=== PATIENT | female | born 1985 | race Asian ===

== ENCOUNTER 2017-05-18 13:23 | Emergency (ER) | payer BC ==
--- NOTE | 2017-05-18 14:40 | EDPHY ---
H & P Time Seen by Provider: 05/18/17 14:03 HPI/ROS: Chief complaint. Abdominal pain HPI. 31-year-old female with early . Her last menstrual. Was April 12. She has had 2 positive home test. She has had 2 day history of low crampy abdominal pain and some vaginal spotting. Some nausea and vomiting but no diarrhea. No urinary symptoms. She is 1 para 0. No chest discomfort or trouble breathing. No fever. ROS Constitutional. no fever/chills, no weakness Eyes. no problems with vision ENT. no sore throat, no nasal drainage Cardiovascular. no chest pain Respiratory. no shortness of breath, no cough Abdominal. Low abdominal cramping with some nausea vomiting; vaginal spotting . no problems urinating MS. no calf pain/swelling, no neck/back pain, no joint pain Skin. no rash Lymph. no swollen glands Neuro. no headache, no dizziness, no difficulty walking or with speech Past Medical/Surgical History: Healthy Social History: , nonsmoker, no alcohol Smoking Status: Never smoked Physical Exam: General Appearance: Alert pleasant well-developed female mild distress vital signs are stable Eyes: Pupils equal and round no pallor or injection. ENT, Mouth: Mucous membranes are moist. Respiratory: There are no retractions, lungs are clear to auscultation. Cardiovascular: Regular rate and rhythm. Gastrointestinal: Abdomen is soft with mild tenderness in the suprapubic and adnexal areas. No masses. No organomegaly; normal bowel sounds Neurological: Awake and alert, sensory and motor exams grossly normal. Skin: Warm and dry, no rashes. Musculoskeletal: Neck is supple nontender. Extremities symmetrical, full range of motion. Psychiatric: Patient is oriented X 3, there is no agitation. Constitutional: Initial Vital Signs Temperature (C) 37.0 C 05/18/17 13:26 Heart Rate 88 05/18/17 13:26 Respiratory Rate 16 05/18/17 13:26 Blood Pressure 116/81 H 05/18/17 13:26 O2 Sat (%) 97 05/18/17 13:26 O2 Delivery Mode Room Air Medical Decision Making - Diagnostics Imaging Results: Imaging Impressions Obstetrics Ultrasound 05/18/17 14:56 Impression: of unknown location. Thickened decidua in the endometrial cavity without intrauterine gestational sac. Small volume of complex fluid, potentially hemoperitoneum, adjacent to the left ovary and fallopian tube. Recommend follow up. Findings discussed with Emergency Department physician, Dr. Ellis Dumont on May 18, 2017 at 1644 hours. Ultrasound reviewed by me and discussed Dr. Parikh shows the thickened decidual lining of the uterus measuring 1.8 cm. An IUP is not seen. There however is no findings of an obvious extra uterine either. The ovaries appear normal. There is some free fluid in the left adnexa and along the contour of the left fallopian tube. Procedures: IV normal saline ED Course/Re-evaluation: Re-evaluation 5:00 p.m.. Patient is stable. Patient and I discussed imaging study results, treatment plan including importance of follow-up and further evaluation as well as criteria for return. They expressed understanding and agreement I consulted and discussed the case with who agrees with current management. She will see the patient in the office in 48 hr for repeat quantitative HCG and ultrasound. Patient's blood type is O-positive Differential Diagnosis: Threatened miscarriage versus early and not seen the intrauterine verses ectopic - Data Points Laboratory Results: Laboratory Results 05/18/17 14:14 05/18/17 14:14 05/18/17 05/18/17 05/18/17 15:15 14:50 14:14 WBC RBC Hgb Hct MCV MCH MCHC RDW Plt Count MPV Neut % (Auto) Lymph % (Auto) [place] % (Auto) Eos % (Auto) Baso % (Auto) Nucleat RBC Rel Count Absolute Neuts (auto) Absolute Lymphs (auto) Absolute Monos (auto) Absolute Eos (auto) Absolute Basos (auto) Absolute Nucleated RBC Immature Gran % Immature Gran # Sodium 141 mEq/L mEq/L (135-145) Potassium 4.0 mEq/L mEq/L (3.5-5.2) Chloride 106 mEq/L mEq/L (97-110) Carbon Dioxide 21 mEq/l L mEq/l (22-31) Anion Gap 14 mEq/L mEq/L (8-16) BUN 11 mg/dL mg/dL (7-23) Creatinine 0.6 mg/dL mg/dL (0.6-1.0) Estimated GFR > 60 Glucose 97 mg/dL mg/dL (70-100) Calcium 9.3 mg/dL mg/dL (8.5-10.4) Beta HCG, Quant 493.37 mIU/mL H mIU/mL (0.00-4.83) Urine Color YELLOW Urine Appearance HAZY Urine pH 6.0 (5.0-7.5) Ur Specific [place] 1.019 (1.002-1.030) Urine Protein NEGATIVE (NEGATIVE) Urine Ketones NEGATIVE (NEGATIVE) Urine Blood 3+ H (NEGATIVE) Urine Nitrate NEGATIVE (NEGATIVE) Urine Bilirubin NEGATIVE (NEGATIVE) Urine Urobilinogen NEGATIVE EU EU (0.2-1.0) Ur Leukocyte Esterase NEGATIVE (NEGATIVE) Urine RBC 15-25 /hpf H /hpf (0-3) Urine WBC 3-5 /hpf H /hpf (0-3) Ur Epithelial Cells 1+ /lpf /lpf (NONE-1+) Urine Bacteria 2+ /hpf H /hpf (NONE SEEN) Urine Mucus TRACE /lpf /lpf (NONE-1+) Urine Glucose NEGATIVE (NEGATIVE) Patient ABO/Rh O POSITIVE 05/18/17 14:14 WBC 7.74 10^3/uL 10^3/uL (3.80-9.50) RBC 4.34 10^6/uL 10^6/uL (4.18-5.33) Hgb 13.6 g/dL g/dL (12.6-16.3) Hct 41.0 % % (38.0-47.0) MCV 94.5 fL fL (81.5-99.8) MCH 31.3 pg pg (27.9-34.1) MCHC 33.2 g/dL g/dL (32.4-36.7) RDW 13.3 % % (11.5-15.2) Plt Count 293 10^3/uL 10^3/uL (150-400) MPV 9.3 fL fL (8.7-11.7) Neut % (Auto) 71.6 % % (39.3-74.2) Lymph % (Auto) 19.5 % % (15.0-45.0) [place] % (Auto) 5.0 % % (4.5-13.0) Eos % (Auto) 2.8 % % (0.6-7.6) Baso % (Auto) 0.8 % % (0.3-1.7) Nucleat RBC Rel Count 0.0 % % (0.0-0.2) Absolute Neuts (auto) 5.54 10^3/uL 10^3/uL (1.70-6.50) Absolute Lymphs (auto) 1.51 10^3/uL 10^3/uL (1.00-3.00) Absolute Monos (auto) 0.39 10^3/uL 10^3/uL (0.30-0.80) Absolute Eos (auto) 0.22 10^3/uL 10^3/uL (0.03-0.40) Absolute Basos (auto) 0.06 10^3/uL 10^3/uL (0.02-0.10) Absolute Nucleated RBC 0.00 10^3/uL 10^3/uL (0-0.01) Immature Gran % 0.3 % % (0.0-1.1) Immature Gran # 0.02 10^3/uL 10^3/uL (0.00-0.10) Sodium Potassium Chloride Carbon Dioxide Anion Gap BUN Creatinine Estimated GFR Glucose Calcium Beta HCG, Quant Urine Color Urine Appearance Urine pH Ur Specific [place] Urine Protein Urine Ketones Urine Blood Urine Nitrate Urine Bilirubin Urine Urobilinogen Ur Leukocyte Esterase Urine RBC Urine WBC Ur Epithelial Cells Urine Bacteria Urine Mucus Urine Glucose Patient ABO/Rh Medications Given: Discontinued Medications Sodium Chloride (Ns) 1,000 mls @ 0 mls/hr IV EDNOW ONE; Wide Open PRN Reason: Protocol Stop: 05/18/17 14:57 Last Admin: 05/18/17 14:59 Dose: 1,000 mls Departure - Departure Disposition: Home, Routine, Self-Care Clinical Impression: Threatened miscarriage Condition: Good Instructions: Threatened Miscarriage (ED) Additional Instructions: Tylenol is okay for pain. Easy activity. Return for worsening pain or bleeding. Call tomorrow to arrange follow-up appointment in the next 48 hr. Referrals: NONE *PRIMARY CARE P,. [Primary Care Provider] - As per Instructions Gina Aviles DO [Doctor of Osteopathy] - 2-3 days, call for appt.
[2017-05-18] MEDS ORDERED: NS 1,000 ML IV ONE (14:56)
[2017-05-18 15:12] LABS: PLATELET COUNT 293 10^3/uL (150-400)
[2017-05-18 17:25] VITALS: BP 109/79; PULSE 68; RESP 18; TEMP 98.2; O2SAT 99
== END 2017-05-18 17:30 | disposition home or self-care (01) ==
DX: O20.0 Threatened abortion (principal); E86.9 Volume depletion, unspecified; Z3A.00 Weeks of gestation of pregnancy not specified

== ENCOUNTER → 2017-06-02 | Outpatient (CLI) | payer OTHER | LOC: FIMAGING 08:53 | PROVIDERS: ATTEND Obstetrics & Gynecology | DX: O36.80X0 Pregnancy with inconclusive fetal viability, not applicable or unspecified (principal) ==

== ENCOUNTER 2018-01-24 19:25 | Observation (INO) | payer OTHER ==
--- NOTE | 2018-01-24 21:55 | OBPROG ---
Labor Progress Note Assessment/Plan: Assessment: 32 up at 30 wks DANNY presents with upper abdominal pain, for rule-out PTL. Discussed with them that negative FFN and CL 4cm very reassuring w regard to PTL. I think likely mom is working on some kind of viral illness and having irregular ctx's/irritabilty related to that. Rec'd PO hydration, electrolytes, fu in clinic if no improving. Dc'd home - appt with me in office on Thursday. EM Subjective/Intrapartum Course: I was on the phone with Kendall and Vern a couple times today. She reports that over the past 24 hours she's developed malaise, lack of appetite, and increasingly uncomfortable upper abdominal pain that comes and goes with some regularity. No bleeding, not sensing actual contractions/tightening, baby is moving well. Denies fever, no nausea/vomiting, no diarrhea. Objective: FFN - Neg CLUS - 4.1cm closed UA - Neg Laboratory Tests 01/24/18 20:40 Urine Color YELLOW Urine Appearance HAZY Urine pH 5.0 Ur Specific [place] 1.023 Urine Protein NEGATIVE Urine Ketones 2+ H Urine Blood NEGATIVE Urine Nitrate NEGATIVE Urine Bilirubin NEGATIVE Urine Urobilinogen NEGATIVE Ur Leukocyte Esterase NEGATIVE Urine Glucose NEGATIVE - SVE Dilation (cm): 0 Effacement (%): 0 Station: -3 Membranes: Intact - Contraction Pattern Assessment Current Contraction Pattern: Other (Specify) (None) - FHR Assessment Taylor FHR (bpm): 155 FHR Pattern Variability: Moderate FHR Category: 1 Oxytocin Orders Assessment - Pre-Induction/Augmentation Assessment Gestational Age: 30 week(s) and 2 day(s) ICD10 Worksheet Patient Problems: Problems Problem Status Onset contractions Acute - ICD10 Problem Qualifiers (1) contractions
== END 2018-01-24 21:50 | disposition home or self-care (01) ==
LOC: FLD 19:25
PROVIDERS: ADMIT Obstetrics & Gynecology; ATTEND Obstetrics & Gynecology
DX: O99.89 Other specified diseases and conditions complicating pregnancy, childbirth and the puerperium (principal); R10.10 Upper abdominal pain, unspecified; R53.81 Other malaise; Z3A.30 30 weeks gestation of pregnancy
CPT/HCPCS: 59025; 76815; G0378

== ENCOUNTER 2018-04-09 09:29 | Inpatient (IN) | payer OTHER ==
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
[2018-04-09] MEDS ORDERED: EPSOM SALT 454 GM TP PRN (10:04)
[2018-04-09] MEDS ORDERED: IBUPROFEN 600 MG TAB PO PRN (10:04)
[2018-04-09] MEDS ORDERED: AMMONIA AROMATIC 1 EACH AMP IH PRN (10:04)
[2018-04-09] MEDS ORDERED: LR 1,000 ML IV PRN (10:04)
[2018-04-09] MEDS ORDERED: OLIVE OIL 118 ML BTL MISC PRN (10:04)
[2018-04-09] MEDS ORDERED: MISOPROSTOL 200 MCG TAB PO PRN (10:04)
[2018-04-09] MEDS ORDERED: LIDOCAINE 1% 300 MG/30 ML SDV SC PRN (10:04)
[2018-04-09] MEDS ORDERED: TERBUTALINE SULFATE 1 MG/ML VIAL IV PRN (10:04)
[2018-04-09] MEDS ORDERED: OXYTOCIN/RINGERS LACTATE 1,000 ML IV PRN (10:04)
[2018-04-09] MEDS ORDERED: TERBUTALINE SULFATE 1 MG/ML VIAL ONE (10:06)
[2018-04-09] MEDS ORDERED: OXYTOCIN 10 UNIT/ML VIAL ONE (10:06)
[2018-04-09] MEDS ORDERED: LIDOCAINE 1% 300 MG/30 ML SDV ONE (10:06)
[2018-04-09] MEDS ORDERED: MISOPROSTOL 200 MCG TAB ONE (10:06)
[2018-04-09] MEDS ORDERED: AMMONIA AROMATIC 1 EACH AMP IH ONE (10:06)
[2018-04-09] MEDS ORDERED: OLIVE OIL 118 ML BTL ONE (10:06)
[2018-04-09 11:56] LABS: PLATELET COUNT 218 10^3/uL (150-400)
--- NOTE | 2018-04-09 13:08 | OBPROG ---
Labor Progress Note Assessment/Plan: Assessment: active labor Plan: 04/09/18 13:07 Subjective/Intrapartum Course: 04/09/18 13:07 coping well with contractions, and mid level project manager at bedside for support Objective: 04/09/18 11:10 Patient ABO/Rh O POSITIVE 04/09/18 11:10 VSS - SVE Dilation (cm): 5 Effacement (%): 90 Station: 0 Membranes: Intact - Contraction Pattern Assessment Current Contraction Pattern: Regular CNM Assessment - Uterine Assessment Uterine Resting Tone: Palpates Soft Between Uterine Contractions - Intermittent Auscultation Auscultation Method Used: Doppler Heart Rate Auscultated (bpm): 140 FHR Acceleration(s) Auscultated: Yes (no audible decels) Oxytocin Orders Assessment - Pre-Induction/Augmentation Assessment Gestational Age: 41 week(s) and 0 day(s) ICD10 Worksheet Patient Problems: Problems Problem Status Onset Normal labor Acute Post term at 41 weeks gestation Acute
--- NOTE | 2018-04-09 17:31 | OBPROG ---
Labor Progress Note Assessment/Plan: Assessment: active labor Plan: 04/09/18 13:07 Subjective/Intrapartum Course: 04/09/18 13:07 coping well with contractions, and trim mounter at bedside for support 04/09/18 17:29 Pt coping well with contractions. Feeling discouraged that its taking so long. Breathing through ctx q 4-5 min Objective: 04/09/18 11:10 Patient ABO/Rh O POSITIVE 04/09/18 11:10 - SVE Dilation (cm): 8 Effacement (%): 90 Station: -1 Membranes: Intact - Contraction Pattern Assessment Current Contraction Pattern: Regular CNM Assessment - Uterine Assessment Contraction Strength: Moderate Uterine Resting Tone: Palpates Soft Between Uterine Contractions - Intermittent Auscultation Auscultation Method Used: Doppler Heart Rate Auscultated (bpm): 140 Oxytocin Orders Assessment - Pre-Induction/Augmentation Assessment Gestational Age: 41 week(s) and 0 day(s) ICD10 Worksheet Patient Problems: Problems Problem Status Onset Normal labor Acute Post term at 41 weeks gestation Acute
--- NOTE | 2018-04-09 18:09 | OBPROG ---
Labor Progress Note Assessment/Plan: Assessment: active labor Plan: 04/09/18 13:07 Subjective/Intrapartum Course: 04/09/18 13:07 coping well with contractions, and inspector eyeglass at bedside for support 04/09/18 17:29 Pt coping well with contractions. Feeling discouraged that its taking so long. Breathing through ctx q 4-5 min Objective: 04/09/18 11:10 Patient ABO/Rh O POSITIVE 04/09/18 11:10 - SVE Dilation (cm): 9 Effacement (%): 100 Station: 0 Membranes: AROM Amniotic Fluid Color: Clear (large quantity of clear fluids) - Contraction Pattern Assessment Current Contraction Pattern: Regular - FHR Assessment Taylor FHR (bpm): 130 FHR Pattern Variability: Moderate FHR Category: 1 Oxytocin Orders Assessment - Pre-Induction/Augmentation Assessment Gestational Age: 41 week(s) and 0 day(s) ICD10 Worksheet Patient Problems: Problems Problem Status Onset Normal labor Acute Post term at 41 weeks gestation Acute
--- NOTE | 2018-04-09 20:09 | OBPROG ---
Labor Progress Note Assessment/Plan: Assessment: active labor Plan: 04/09/18 13:07 Subjective/Intrapartum Course: 04/09/18 13:07 coping well with contractions, and strap setter at bedside for support 04/09/18 17:29 Pt coping well with contractions. Feeling discouraged that its taking so long. Breathing through ctx q 4-5 min 04/09/18 20:07 Pt requesting labor epidural at this time. Objective: 04/09/18 11:10 Patient ABO/Rh O POSITIVE 04/09/18 11:10 - SVE Dilation (cm): 7 Effacement (%): 80 Station: 0 Membranes: AROM Amniotic Fluid Color: Clear (large quantity of clear fluids) - Contraction Pattern Assessment Current Contraction Pattern: Regular - FHR Assessment Taylor FHR (bpm): 125 (early decels) FHR Pattern Variability: Moderate Oxytocin Orders Assessment - Pre-Induction/Augmentation Assessment Gestational Age: 41 week(s) and 0 day(s) ICD10 Worksheet Patient Problems: Problems Problem Status Onset Normal labor Acute Post term at 41 weeks gestation Acute Slow progress in first stage of labor Acute - ICD10 Problem Qualifiers (1) Slow progress in first stage of labor
[2018-04-09] MEDS ORDERED: BUPIVACAINE 0.25% 10 ML SDV ONE (20:51)
[2018-04-09] MEDS ORDERED: fentaNYL 2MCG/ML/BUP 0.1% RTU 100 ML BAG EP ONE (20:52)
[2018-04-09] MEDS ORDERED: PHENYLEPHRINE HCL 100 MCG/ML SYR IVP PRN (21:23)
[2018-04-09] MEDS ORDERED: ONDANSETRON 4 MG/2 ML VIAL IVP PRN (21:23)
[2018-04-09] MEDS ORDERED: NALOXONE HCL 0.4 MG/ML INJ IVP PRN (21:23)
[2018-04-09] MEDS ORDERED: METOCLOPRAMIDE 10 MG/2 ML VIAL IVP PRN (21:23)
--- NOTE | 2018-04-09 21:23 | PREANESOB ---
Obstetric Pre-Anesthesia Info - General Info : 2 Para: 0 FORD: 04/02/18 Gestational Age: 41 week(s) and 0 day(s) - Labor Status Cervical Dilation per last OB SVE: 7 Station per last OB SVE: 0 Amniotic Fluid Color: Clear (large quantity of clear fluids) Anesthesia Allergies/Adverse Reactions: Allergy/AdvReac Type Severity Reaction Status Date / Time No Known Allergies Allergy Unverified 01/24/18 19:32 Home Medications: Medication Instructions Recorded Iron 325 mg PO DAILY 01/24/18 [place] 3 500 Softgel 01/24/18 Dha 1 tab PO 01/24/18 Visit Medications: Generic Name Dose Route Start Last Admin Trade Name Freq PRN Reason Stop Dose Admin Ammonia (Aromatic Spirit) 1 each 04/09/18 10:04 Ammonia Aromatic IH 04/19/18 10:03 ONCE PRN Fainting Lactated Ringer's 1,000 mls @ 0 mls/hr 04/09/18 10:04 04/09/18 20:15 Lr IV 04/10/18 10:03 1,000 mls PRN PRN Administration SEE PROTOCOL CONDITIONS Protocol Per Protocol Oxytocin/Lactated Ringer's 1,000 mls @ 0 mls/hr 04/09/18 10:04 Pitocin 20 Units/Lr (Premix) IV PRN PRN Post bleeding As Directed Ibuprofen 600 mg 04/09/18 10:04 Motrin PO ONCE PRN post , pain Lidocaine HCl 300 mg 04/09/18 10:04 Lidocaine Hcl 1% SC 10/06/18 10:03 ONCE PRN episiotomy Magnesium Sulfate 454 gm 04/09/18 10:04 Epsom Salt TP 10/06/18 10:03 Q1H PRN perineal discomfort Misoprostol 800 - 1,000 mcg 04/09/18 10:04 Cytotec PO 10/06/18 10:03 ONCE PRN Vaginal Atony/Bleeding [place] Oil 118 ml 04/09/18 10:04 Sweet Oil MISC 10/06/18 10:03 ONCE PRN perineal massage Terbutaline Sulfate 0.25 mg 04/09/18 10:04 Brethine IV 10/06/18 10:03 ONCE PRN Tachysystole Discontinued Medications Generic Name Dose Route Start Last Admin Trade Name Freq PRN Reason Stop Dose Admin Ammonia (Aromatic Spirit) Confirm 04/09/18 10:06 Ammonia Aromatic Administered 04/09/18 10:07 Dose 1 each IH .STK-MED ONE Bupivacaine HCl Confirm 04/09/18 20:51 Sensorcaine 0.25% Sdv Administered 04/09/18 20:52 Dose 10 ml .ROUTE .STK-MED ONE Fentanyl/Bupivacaine HCl Confirm 04/09/18 20:52 Fentanyl/Bupivacaine/Ns 2 Mcg/Ml 0.1% (Premix Administered 04/09/18 20:53 Dose 100 ml EP .STK-MED ONE Lidocaine HCl Confirm 04/09/18 10:06 Lidocaine Hcl 1% Administered 04/09/18 10:07 Dose 300 mg .ROUTE .STK-MED ONE Misoprostol Confirm 04/09/18 10:06 Cytotec Administered 04/09/18 10:07 Dose 1,000 mcg .ROUTE .STK-MED ONE [place] Oil Confirm 04/09/18 10:06 Sweet Oil Administered 04/09/18 10:07 Dose 118 ml .ROUTE .STK-MED ONE Oxytocin Confirm 04/09/18 10:06 Pitocin Administered 04/09/18 10:07 Dose 40 unit .ROUTE .STK-MED ONE Terbutaline Sulfate Confirm 04/09/18 10:06 Brethine Administered 04/09/18 10:07 Dose 1 mg .ROUTE .STK-MED ONE - Vital Signs Height/Weight (Nursing): Height 171.45 cm Weight 68.039 kg Labs: 04/09/18 11:10 Patient ABO/Rh O POSITIVE 04/09/18 11:10 - Plan Anesthetic Plan: KESHIA Consent Signed and on Chart: Yes Patient/Guardian Understands and Agrees to Plan: Yes Urgent/Emergent Case: Aaron zhao completed preop but documented later for safe timely pt care
[2018-04-09] MEDS ORDERED: fentaNYL 2MCG/ML/BUP 0.1% RTU 100 ML EP SCH (21:30)
[2018-04-09] MEDS ORDERED: LR 500 ML IV SCH (21:30)
[2018-04-09] MEDS ORDERED: LR 500 ML IV PRN (21:47)
[2018-04-09] MEDS ORDERED: OXYTOCIN/RINGERS LACTATE 500 ML IV SCH (22:00)
--- NOTE | 2018-04-10 02:01 | OBPROG ---
Labor Progress Note Assessment/Plan: Assessment: active labor Plan: 04/09/18 13:07 Subjective/Intrapartum Course: 04/09/18 13:07 coping well with contractions, and pourer off at bedside for support 04/09/18 17:29 Pt coping well with contractions. Feeling discouraged that its taking so long. Breathing through ctx q 4-5 min 04/09/18 20:07 Pt requesting labor epidural at this time. 04/10/18 01:58 Pt resting comfortably with epidural. Reports a little more pressure at this time. Objective: 04/09/18 11:10 Patient ABO/Rh O POSITIVE 04/09/18 11:10 Pitocin at 8 mU. VSS - SVE Dilation (cm): 9 Effacement (%): 90 Station: +1 Membranes: AROM Amniotic Fluid Color: Clear (large quantity of clear fluids) - Contraction Pattern Assessment Current Contraction Pattern: Regular - FHR Assessment Taylor FHR (bpm): 120 FHR Pattern Variability: Moderate FHR Category: 1 - AP Antepartum Course: 04/10/18 01:59 slow progress in first stage of labor Oxytocin Orders Assessment - Pre-Induction/Augmentation Assessment Presentation: Vertex Gestational Age: 41 week(s) and 0 day(s) Estimated Weight: 0057-3402 Membrane Status: Ruptured Current Contraction Pattern: Regular - Heart Rate Pattern Taylor FHR Category: 1 - Induction/Augmentation Consent Risks/Benefits of Procedure Reviewed/Pt Agrees to Proceed: Yes ICD10 Worksheet Patient Problems: Problems Problem Status Onset Normal labor Acute Post term at 41 weeks gestation Acute Slow progress in first stage of labor Acute - ICD10 Problem Qualifiers (1) Slow progress in first stage of labor
--- NOTE | 2018-04-10 05:23 | OBPROG ---
Labor Progress Note Assessment/Plan: Assessment: active labor Plan: 04/09/18 13:07 04/10/18 05:28 continue pitocin augmentation at this time Subjective/Intrapartum Course: 04/09/18 13:07 coping well with contractions, and two needle machine operator at bedside for support 04/09/18 17:29 Pt coping well with contractions. Feeling discouraged that its taking so long. Breathing through ctx q 4-5 min 04/09/18 20:07 Pt requesting labor epidural at this time. 04/10/18 01:58 Pt resting comfortably with epidural. Reports a little more pressure at this time. 04/10/18 05:23 comfortable with epidural. increasing pressure Objective: 04/09/18 11:10 Patient ABO/Rh O POSITIVE 04/09/18 11:10 - SVE Dilation (cm): 9 (lip remains on R side) Effacement (%): 100 Station: +1 Membranes: AROM Amniotic Fluid Color: Clear (large quantity of clear fluids) - Contraction Pattern Assessment Current Contraction Pattern: Regular (3 min) - AP Antepartum Course: 04/10/18 01:59 slow progress in first stage of labor 04/10/18 05:21 pt has made slow progress in first stage of labor, discussed reasons for long labor including malposition, size of fetus, and strength of contractions. pt is laboring down at this time FHT remain reassuring - Physical Exam Estimated Weight: 7577-3159 Oxytocin Orders Assessment - Pre-Induction/Augmentation Assessment Presentation: Vertex Gestational Age: 41 week(s) and 0 day(s) Estimated Weight: 1294-2190 ICD10 Worksheet Patient Problems: Problems Problem Status Onset Normal labor Acute Post term at 41 weeks gestation Acute Slow progress in first stage of labor Acute - ICD10 Problem Qualifiers (1) Slow progress in first stage of labor
--- NOTE | 2018-04-10 08:01 | OBPROG ---
Labor Progress Note Assessment/Plan: Assessment: active labor Plan: 04/09/18 13:07 04/10/18 05:28 continue pitocin augmentation at this time 04/10/18 07:55 A: slow progress with pushing. P: Dr. Rocha consulted to discuss options for operative vaginal delivery. Subjective/Intrapartum Course: 04/09/18 13:07 coping well with contractions, and psychiatric mental health nurse at bedside for support 04/09/18 17:29 Pt coping well with contractions. Feeling discouraged that its taking so long. Breathing through ctx q 4-5 min 04/09/18 20:07 Pt requesting labor epidural at this time. 04/10/18 01:58 Pt resting comfortably with epidural. Reports a little more pressure at this time. 04/10/18 05:23 comfortable with epidural. increasing pressure Objective: 04/09/18 11:10 Patient ABO/Rh O POSITIVE 04/09/18 11:10 - SVE Dilation (cm): 10 Effacement (%): 100 Station: +1 Membranes: AROM Amniotic Fluid Color: Meconium Stained Dilation Complete Date: 04/10/18 Dilation Complete Time: 06:15 - Contraction Pattern Assessment Current Contraction Pattern: Regular (3-5 min) - FHR Assessment Taylor FHR (bpm): 125 FHR Pattern Variability: Moderate FHR Category: 1 - AP Antepartum Course: 04/10/18 01:59 slow progress in first stage of labor 04/10/18 05:21 pt has made slow progress in first stage of labor, discussed reasons for long labor including malposition, size of fetus, and strength of contractions. pt is laboring down at this time FHT remain reassuring 04/10/18 07:57 Pt has been pushing with minimal progress for approximately 1 hour. She has made some progress. FHT reassuring at this time. - Physical Exam Estimated Weight: 6907-8000 Oxytocin Orders Assessment - Pre-Induction/Augmentation Assessment Presentation: Vertex Gestational Age: 41 week(s) and 0 day(s) Estimated Weight: 6548-0053 ICD10 Worksheet Patient Problems: Problems Problem Status Onset Normal labor Acute Post term at 41 weeks gestation Acute Slow progress in first stage of labor Acute - ICD10 Problem Qualifiers (1) Slow progress in first stage of labor
[2018-04-10] MEDS ORDERED: ceFAZolin 2 GM/DEXTROSE 100 ML IV ONE (10:24)
[2018-04-10] MEDS ORDERED: LR 500 ML IV ONE (10:24)
[2018-04-10] MEDS ORDERED: LR 1,000 ML IV SCH (10:30)
--- NOTE | 2018-04-10 10:38 | OBPROG ---
Labor Progress Note Assessment/Plan: Assessment: I had a long talk with Laxmi about options. Because baby looks good, the idea of pushing longer would be an option - but at this point after 4 hrs of pushing I would recommend against that. I offered OVD with forceps over vacuum in this situation, but admitted that there's some evidence here that baby is indeed having a hard time fitting - protracted labor, still +2 after many hours of pushing, with caput, and minimal movement of baby with pushing efforts. Lastly offered Csection. Overall I counseled them that Csection may very well be the safest path for baby at this point. They agreed with this and are comfortable with that decision. RBA discussed, consents signed, routine orders with weight-based Ancef. Subjective/Intrapartum Course: 04/09/18 13:07 coping well with contractions, and chairperson anesthesiology at bedside for support 04/09/18 17:29 Pt coping well with contractions. Feeling discouraged that its taking so long. Breathing through ctx q 4-5 min 04/09/18 20:07 Pt requesting labor epidural at this time. 04/10/18 01:58 Pt resting comfortably with epidural. Reports a little more pressure at this time. 04/10/18 05:23 comfortable with epidural. increasing pressure 04/10/18 10:32 Met with Laxmi this AM, examined her, had a long talk re options with her and her partner. She has been pushing for approximately 4 hours at this point. Comfortable with epidural, Pitocin running. Baby Category II FHR tracing - has looked good overall. Exhausted but still has some energy. Objective: 04/09/18 11:10 Patient ABO/Rh O POSITIVE 04/09/18 11:10 Temp Pulse Resp BP Pulse Ox 37.3 C 102 H 18 123/78 H 95 04/10/18 10:18 04/10/18 10:18 04/10/18 10:18 04/10/18 10:18 04/10/18 10:18 - SVE Dilation (cm): 10 Effacement (%): 100 Station: +2 (Moderate caput to +3, bones are at +2 or less, position feels BUBBA. Baby moves little with pushing.) Membranes: AROM Amniotic Fluid Color: Meconium Stained Dilation Complete Date: 04/10/18 Dilation Complete Time: 06:15 - Contraction Pattern Assessment Current Contraction Pattern: Regular (3-5 min) - FHR Assessment Taylor FHR (bpm): 145 FHR Pattern Variability: Moderate FHR Category: 2 - AP Antepartum Course: 04/10/18 01:59 slow progress in first stage of labor 04/10/18 05:21 pt has made slow progress in first stage of labor, discussed reasons for long labor including malposition, size of fetus, and strength of contractions. pt is laboring down at this time FHT remain reassuring 04/10/18 07:57 Pt has been pushing with minimal progress for approximately 1 hour. She has made some progress. FHT reassuring at this time. - Physical Exam Estimated Weight: [id number] Oxytocin Orders Assessment - Pre-Induction/Augmentation Assessment Presentation: Vertex Gestational Age: 41 week(s) and 0 day(s) Estimated Weight: 7982-3683 ICD10 Worksheet Patient Problems: Problems Problem Status Onset Normal labor Acute Post term at 41 weeks gestation Acute Slow progress in first stage of labor Acute
[2018-04-10] MEDS ORDERED: OXYTOCIN 100 UNITS/10 ML VIAL ONE (10:50)
[2018-04-10] MEDS ORDERED: morphINE PF 5 MG/10 ML INJ ONE (10:50)
[2018-04-10] MEDS ORDERED: LIDO/EPI 2% **for epidural** 20 ML SDV ONE (10:51)
[2018-04-10] MEDS ORDERED: DEXAMETHASONE 4 MG/ML VIAL ONE (10:53)
[2018-04-10] MEDS ORDERED: ONDANSETRON 4 MG/2 ML VIAL ONE (10:53)
--- NOTE | 2018-04-10 10:57 | PDANEPAE ---
ANE History of Present Illness C/s for arrest of descent ANE Past Medical History - Pulmonary History Hx Oxygen in Use at Home: No Hx Sleep Apnea: No Sleep Apnea Screening Result - Last Documented: Negative - Endocrine History Hx Diabetes: No - Chronic Pain History Chronic Pain: No ANE Review of Systems Review of systems is: negative Review of Systems: - Exercise capacity Exercise capacity: >=4 METS ANE Patient History - Allergies Allergies/Adverse Reactions: No Known Allergies Allergy (Unverified 01/24/18 19:32) - Home Medications Home medications: home medication list seen and reviewed Home Medications: Iron 325 mg PO DAILY 01/24/18 [Last Taken 01/23/18] [place] 3 500 Softgel 01/24/18 [Last Taken Unknown] Dha 1 tab PO 01/24/18 [Last Taken 01/23/18] - NPO status NPO Since - Liquids (Date): 04/10/18 NPO Since - Liquids (Time): 10:10 - Anes Hx Anes Hx: no prior problems - Smoking Hx Smoking Status: Never smoked - Family Anes Hx Family Anes Hx: none ANE Labs/Vital Signs - Labs Result Diagrams: 04/09/18 11:10 - Vital Signs Vital Signs: reviewed preoperatively; see RN documention for details Blood Pressure: 123/78 Heart Rate: 102 Respiratory Rate: 18 O2 Sat (%): 95 Height: 171.45 cm Weight: 68.039 kg ANE Physical Exam - Airway Neck exam: FROM Mallampati Score: Class 1 Mouth exam: normal dental/mouth exam - Pulmonary Pulmonary: no respiratory distress - Cardiovascular Cardiovascular: regular rate and rhythym - ASA Status ASA Status: II ANE Anesthesia Plan Anesthesia Plan: epidural
[2018-04-10] MEDS ORDERED: NALOXONE HCL 0.4 MG/ML INJ IVP PRN ×2 (11:19→11:20)
[2018-04-10] MEDS ORDERED: HYDROmorphONE/DILAUDID 1 MG/ML INJ IVP PRN (11:19)
[2018-04-10] MEDS ORDERED: HYDROCODONE/APAP 5/325 TAB PO PRN (11:19)
[2018-04-10] MEDS ORDERED: ONDANSETRON 4 MG/2 ML VIAL IVP PRN ×2 (11:19→11:20)
[2018-04-10] MEDS ORDERED: OXYCODONE/APAP 5/325 TAB PO PRN ×2 (11:19→12:17)
[2018-04-10] MEDS ORDERED: PHENYLEPHRINE HCL 100 MCG/ML SYR IVP PRN (11:19)
[2018-04-10] MEDS ORDERED: MEPERIDINE 25 MG/0.5 ML AMP IVP PRN (11:19)
[2018-04-10] MEDS ORDERED: fentaNYL 100 MCG/2 ML INJ IVP PRN (11:19)
--- NOTE | 2018-04-10 11:22 | POSTANESTH ---
Post Anesthetic Evaluation Cardiovascular Status: Normal, Stable, Similar to Pre-Op Cond Respiratory Status: Normal, Stable, Similar to Pre-op Cond. Level of Consciousness/Mental Status: Can Participate in Eval, Alert and Oriented Pain Control: Adequate, Prn Tx Ordered Nausea/Vomiting Control: Adequate, Prn Tx Ordered Complications Possibly Related to Anesthesia: None Noted
[2018-04-10] MEDS ORDERED: METHYLERGONOVINE MAL 0.2 MG/ML INJ ONE (11:31)
[2018-04-10] MEDS ORDERED: PHENYLEPHRINE HCL 100 MCG/ML SYR ONE (11:40)
[2018-04-10] MEDS ORDERED: PROMETHAZINE HCL 25 MG/ML INJ IVP PRN (12:21)
[2018-04-10] MEDS ORDERED: SIMETHICONE 80 MG TAB CHEW PO PRN (12:21)
[2018-04-10] MEDS ORDERED: DOCUSATE SODIUM 100 MG CAP PO PRN (12:21)
--- NOTE | 2018-04-10 12:27 | POSTOPPROG ---
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 Pedunculated fibroids sent for permanent path.
--- NOTE | 2018-04-10 12:31 | SUROPNOTE ---
JOYCELYN Operative Report - Surgery Date of Operation: 04/10/18 Surgeon: Alvin Allen Payable Processor: Rosita Valentine CNM, JEFERSON Leal Anesthesiologist: Brian Tovar Anesthesia: Epidural Pre-op Diagnosis: 1. Arrest of descent Post-op Diagnosis: 1. Same 2. BUBBA position 3. 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 Pedunculated subserosal myoma, 2cm, fundal Procedure: 1. Primary low transverse section 2. Subserosal uterine myomectomy Findings: NEFG, Uterus with 2cm subserosal pedunculated myoma fundal, otherwise normal tubes and ovaries. Inf/Abcess present in the surg proc area at time of surgery?: No EBL: 500-1000 (900cc) Complications: None Specimen(s): Vigorous baby girl, placenta not sent, cord blood gasses not sent. Pedunculated fibroid sent for permanent path. Technique: The patient was taken to the OR where epidural was dosed and anesthesia found to be adequate. The patient was then positioned supine with a leftward tilt and a time-out was performed. She was given weight-based antibiotics prior to skin incision. The abdomen was prepped and draped in normal sterile fashion. A Pfannenstiel skin incision was made with the scalpel and carried down to the fascia. The fascia was incised in the midline and the incision extended bilaterally sharply with scissors. The fascia was dissected off of the underlying rectus muscles superiorly and inferiorly also sharply using scissors. The rectus were in the midline and the peritoneum identified and entered bluntly without issue. The peritoneal incision was extended and the bladder blade was then placed. The vesicouterine junction was identified and a bladder flap created sharply and developed bluntly. A transverse incision was made with the scalpel in the lower uterine segment and extended with cephalad and caudad traction on the incision edges. The head was encountered in BUBBA/LOT position and easily elevated out of the pelvis and delivered atraumatically. There was a single nuchal cord that was reduced easily before delivery of the body. The nose and mouth were bulb suctioned. We did wait for 60 seconds before clamping and cutting the cord and then the was handed to pediatric staff. It was clear immediately that the female infant had abnormal flexion of both knees anteriorly - some kind of dislocation or dysplasia of both knees. Physically the baby otherwise looked completely normal. Cord blood gases were not sent and the placenta was not sent to pathology. The uterus was then exteriorized and carefully wiped of all debris. The uterus was closed in two layers - the first layer was running with 180 0-vloc and the second a vertical imbricating layer using 0-vicryl. There was a fragile, pedunculated, 2cm subserosal myoma that had become partially disrupted/ lacerated with the pressure of delivery. The stalk was partially avulsed and was bleeding. I made the decision to amputate/excise the myoma. I came through the stalk with the bovie and then addressed bleeding of the stump of the base with a single [id number] suture of 0-vicryl. The uterine incision was reinspected and found to be hemostatic. The uterus was then returned to the abdomen. The fascia was elevated and the rectus muscles and subcutaneous tissues were found to be hemostatic. The fascia was closed with a running 0-Vicryl - single suture. The subcutaneous tissues were irrigated and hemostasis obtained. The subcutaneous space was closed with interrupted sutures of 2-0 vicryl. The skin was closed with 4-0 vloc undyed and then covered with Medipore dressing. The patient tolerated the procedure and was taken to recovery in stable condition. Lap, needle, sponge, and instrument count were announced as correct times two. I was present and scrubbed for the entire case. The fibroid removed was sent for permanent pathology. Peds will be asked to take a look at baby with regard to knees.
--- NOTE | 2018-04-10 12:35 | OBDEL ---
Info Type: Primary Presentation at Delivery: Vertex (BUBBA) L&D Analgesia/Anesthesia Type: Epidural, Spinal GBS+: No Intrapartum Medications: Generic Name Dose Route Start Last Admin Trade Name Freq PRN Reason Stop Dose Admin Oxytocin/Lactated Ringer's 500 mls @ 0 mls/hr 04/09/18 22:00 04/09/18 21:55 Pitocin 30 Units/Lr (Premix) IV 10/06/18 21:59 500 mls CONT DOUG Administration Protocol Per Protocol Discontinued Medications Generic Name Dose Route Start Last Admin Trade Name Freq PRN Reason Stop Dose Admin Lactated Ringer's 1,000 mls @ 0 mls/hr 04/09/18 10:04 04/09/18 20:15 Lr IV 04/10/18 10:03 1,000 mls PRN PRN Administration SEE PROTOCOL CONDITIONS Protocol Per Protocol Cefazolin Sodium/Dextrose 100 mls @ 200 mls/hr 04/10/18 10:24 04/10/18 10:50 Ancef IV 04/10/18 10:53 100 mls ONCALL ONE Administration Protocol - Hospital Course Intrapartum: 04/09/18 13:07 coping well with contractions, and aircraft design engineer at bedside for support 04/09/18 17:29 Pt coping well with contractions. Feeling discouraged that its taking so long. Breathing through ctx q 4-5 min 04/09/18 20:07 Pt requesting labor epidural at this time. 04/10/18 01:58 Pt resting comfortably with epidural. Reports a little more pressure at this time. 04/10/18 05:23 comfortable with epidural. increasing pressure 04/10/18 10:32 Met with Laxmi this AM, examined her, had a long talk re options with her and her partner. She has been pushing for approximately 4 hours at this point. Comfortable with epidural, Pitocin running. Baby Category II FHR tracing - has looked good overall. Exhausted but still has some energy. Vaginal Delivery - Labor and Delivery Onset of Contractions Date: 04/08/18 Amniotic Fluid Color: Meconium Stained Dilation Complete Date: 04/10/18 Dilation Complete Time: 06:15 Operative Report - Delivery Pre-op Diagnoses: 1. Arrest of descent Post-op Diagnoses: 1. Arrest of descent. 2. BUBBA position. 3. congenital dysplasia of the knee, bilaterally - previously undetected. 4. Pedunculated subserosal myoma History of Prior Section: No Nulliparous Prior to Delivery: No Indications for Current Section: Arrest of Descent Procedure: Unscheduled, Low Transverse Surgeon: Alvin Allen [employer] Consultant: Rosita Valentine (Sadaf Forbes COOLER OPERATOR) Anesthesiologist: Brian Tovar Complications: Nucal Cord (x 1) Findings: 1. NEFG 2. 2cm pedunculated subserosal myoma - bleeding from trauma with delivery 3. Vigorous baby girl, 2gno5km, Apgars 8/9 4. congenital bilateral dysplasia of the knee - previously undetected/ unknown Specimen(s)/Path: Other (Specify) (Myoma) EBL: 900cc Cord Gases: Not sent Data FORD: 04/02/18 Gestational Age: 41 week(s) and 1 day(s) Taylor Delivery Date: 04/10/18 Delivery Time: 11:25 Weight (gm): 4132 g Score (1 Min): 8 Score (5 Min): 9 ICD10 Worksheet Patient Problems: Problems Problem Status Onset Arrest of descent, delivered, current hospitalization Acute Normal labor Acute Post term at 41 weeks gestation Acute S/P myomectomy Acute S/P primary low transverse Acute Slow progress in first stage of labor Acute Subserosal leiomyoma of uterus Acute - ICD10 Problem Qualifiers (1) Arrest of descent, delivered, current hospitalization (2) S/P primary low transverse (3) Subserosal leiomyoma of uterus (4) S/P myomectomy
[2018-04-10] MEDS: KETOROLAC 30 MG/1 ML SDV IVP SCH ×2 (13:47→19:50)
[2018-04-10] MEDS: ACETAMINOPHEN 325 MG TAB PO SCH ×2 (15:29→19:50)
[2018-04-11] MEDS: ACETAMINOPHEN 325 MG TAB PO SCH ×4 (00:30→18:33)
[2018-04-11] MEDS: KETOROLAC 30 MG/1 ML SDV IVP SCH ×2 (02:00→08:01)
--- NOTE | 2018-04-11 12:25 | OBPP ---
Progress Note Assessment/Plan: Assessment: 32 y/o POD #1 s/p LTCS secondary to arrest of descent and macrosomia Plan: Will start iron QD. support, bowel protocol and routine POC. 04/11/18 12:25 Subjective/ Course: 04/11/18 12:19 Pt is doing well today. She feels body aches and soreness from labor and pushing, but feels good pain control from her incision. She has ambulated, voided and showered today. She has min lochia. She is taking Ibuprofen and Tylenol and she know she has Oxy prn. They are working on breast feeding and baby is doing well overall. Objective: 04/11/18 04:40 Patient ABO/Rh O POSITIVE 04/09/18 11:10 Temp Pulse Resp BP Pulse Ox 36.6 C 93 16 103/65 93 04/11/18 09:30 04/11/18 09:30 04/11/18 09:30 04/11/18 09:30 04/11/18 09:30 Uterine Position/Fundal Height: Umbilicus -2 Uterine Tone: Firm Physical Exam - Physical Exam General Appearance: alert, no apparent distress Neck: non-tender, full range of motion, supple Respiratory: chest non-tender, lungs clear, normal breath sounds Cardiac/Chest: regular rate, rhythm Abdomen: normal bowel sounds, incision (c/d/i) Extremities: swelling (no), Aminata's sign (neg)
[2018-04-11] MEDS ORDERED: LACTULOSE 20 GM/30 ML UDCUP PO PRN (12:31)
[2018-04-11] MEDS ORDERED: POLYETHYLENE GLYCOL 3350 17 GM PKT PO PRN (12:31)
[2018-04-11] MEDS ORDERED: BISACODYL 10 MG SUPP PR PRN (12:31)
[2018-04-11] MEDS ORDERED: MAGNESIUM HYDROXIDE 30 ML UDCUP PO PRN (12:31)
[2018-04-11] MEDS: IBUPROFEN 600 MG TAB PO SCH ×2 (12:55→18:33)
[2018-04-11] MEDS: FERRO-SEQUELS 65 MG TAB.ER PO SCH (13:40)
[2018-04-11] MEDS: oxyCODONE IR 5 MG TAB PO PRN ×2 (18:31→22:25)
[2018-04-11] MEDS: SENNOSIDES/DOCUSATE SODIUM TAB PO SCH (22:25)
[2018-04-12] MEDS: ACETAMINOPHEN 325 MG TAB PO SCH ×4 (00:48→21:20)
[2018-04-12] MEDS: IBUPROFEN 600 MG TAB PO SCH ×4 (00:49→21:19)
--- NOTE | 2018-04-12 07:51 | PDPAINCON ---
Pain Management Consultation Patient referred by : Tiffany - Subjective Pain is: low, well controlled Side effects include: No drowsy, No itchiness, No nausea Activity: able to ambulate - Objective Technique: continuous epidural Continuous infusion: morphine Sensory and motor exam: block has resolved, no apparent ill effects Vital signs: stable - Assessment/Plan Assessment/Plan: pain well-controlled, continue current mgmt Additional comments: STEVEN converted for C/S for arrest of descent. Rec'd epidural morphine. Doing well overall, denies adverse effects, able to ambulate , tolerating PO.
[2018-04-12] MEDS: SENNOSIDES/DOCUSATE SODIUM TAB PO SCH ×2 (10:00→21:17)
[2018-04-12] MEDS: FERRO-SEQUELS 65 MG TAB.ER PO SCH (10:00)
[2018-04-12] MEDS: oxyCODONE IR 5 MG TAB PO PRN ×2 (10:04→21:21)
--- NOTE | 2018-04-12 10:56 | OBPP ---
Progress Note Assessment/Plan: Assessment: 32 y/o P1 s/p primary c/s post op day #2 Plan: Routine post op care Consider discharge tomorrow 04/12/18 10:56 Subjective/ Course: 04/11/18 12:19 Pt is doing well today. She feels body aches and soreness from labor and pushing, but feels good pain control from her incision. She has ambulated, voided and showered today. She has min lochia. She is taking Ibuprofen and Tylenol and she know she has Oxy prn. They are working on breast feeding and baby is doing well overall. 04/12/18 10:52 Doing well this am. Vag bleeding wnl, tolerating regular diet, pain well controlled with oral pain meds, voiding, passing gas, incision healing well, tolerating activity. going fine - baby is under bili lights at the bedside. Objective: 04/11/18 04:40 Patient ABO/Rh O POSITIVE 04/09/18 11:10 Temp Pulse Resp BP Pulse Ox 36.2 C 83 18 105/67 94 04/12/18 01:03 04/12/18 01:03 04/12/18 01:03 04/12/18 01:03 04/12/18 01:03 Uterine Position/Fundal Height: Umbilicus -1 Uterine Tone: Firm Physical Exam - Physical Exam EENT: normal ENT inspection Neck: non-tender Respiratory: normal breath sounds Cardiac/Chest: regular rate, rhythm Abdomen: normal bowel sounds, flatus, incision (well approximated - healing well ) Extremities: normal range of motion Skin: normal color, warm/dry Neuro/Psych: no motor/sensory deficits, alert, normal mood/affect, oriented x 3
[2018-04-13] MEDS: ACETAMINOPHEN 325 MG TAB PO SCH ×3 (03:34→16:27)
[2018-04-13] MEDS: IBUPROFEN 600 MG TAB PO SCH ×3 (03:35→16:28)
[2018-04-13] MEDS: oxyCODONE IR 5 MG TAB PO PRN ×2 (09:45→18:28)
[2018-04-13] MEDS: FERRO-SEQUELS 65 MG TAB.ER PO SCH (09:45)
[2018-04-13] MEDS: SENNOSIDES/DOCUSATE SODIUM TAB PO SCH (09:46)
[2018-04-13] MEDS ORDERED: MEASLES,MUMPS&RUBELLA VACC/PF 0.5 ML VIAL SC ONE ×2 (10:39→15:30)
--- NOTE | 2018-04-13 10:42 | OBPP ---
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 Continue pain medications as prescribed. MMR prior to discharge Will be discharged to [facility] today and coming in to assist with latch. Follow up in the clinic week 2, 4 and 6 weeks. Subjective/ Course: 04/11/18 12:19 Pt is doing well today. She feels body aches and soreness from labor and pushing, but feels good pain control from her incision. She has ambulated, voided and showered today. She has min lochia. She is taking Ibuprofen and Tylenol and she know she has Oxy prn. They are working on breast feeding and baby is doing well overall. 04/12/18 10:52 Doing well this am. Vag bleeding wnl, tolerating regular diet, pain well controlled with oral pain meds, voiding, passing gas, incision healing well, tolerating activity. going fine - baby is under bili lights at the bedside. 04/13/18 10:39 Doing well overall. Having some upper abdominal soreness especially when ambulating. States it is difficult to stand up straight. Bleeding has been normal, tolerating reg diet, voiding and has has a bm without difficult, and pain is controlled with medications. Nipples are sore today. Baby does have a known tongue tie and is being referred to an ENT for evaluation per the strategic marketing associate. Milk is not yet in. She is and pumping. Baby being supplemented with donor milk. Objective: 04/11/18 04:40 Patient ABO/Rh O POSITIVE 04/09/18 11:10 Temp Pulse Resp BP Pulse Ox 36.3 C 79 18 121/79 H 94 04/12/18 22:01 04/12/18 22:01 04/12/18 22:01 04/12/18 22:01 04/12/18 22:01 Incision site well approximated, minimal bruising and some edema. No redness or exudate noted Nipples intact bilaterally, breasts soft Negative enedina's sign Uterine Position/Fundal Height: Umbilicus -1 Uterine Tone: Firm
--- NOTE | 2018-04-13 10:46 | OBGCSDC ---
General Delivery Information - General Info : 2 Para: 1 Abortions: 1 Type: Primary L&D Analgesia/Anesthesia Type: Epidural, Spinal Admission Date: 04/09/18 Labs: Patient ABO/Rh O POSITIVE 04/09/18 11:10 Hct 33.5 % (38.0-47.0) L 04/11/18 04:40 - Hospital Course Antepartum: 04/10/18 01:59 slow progress in first stage of labor 04/10/18 05:21 pt has made slow progress in first stage of labor, discussed reasons for long labor including malposition, size of fetus, and strength of contractions. pt is laboring down at this time FHT remain reassuring 04/10/18 07:57 Pt has been pushing with minimal progress for approximately 1 hour. She has made some progress. FHT reassuring at this time. Intrapartum: 04/09/18 13:07 coping well with contractions, and shrimp picker at bedside for support 04/09/18 17:29 Pt coping well with contractions. Feeling discouraged that its taking so long. Breathing through ctx q 4-5 min 04/09/18 20:07 Pt requesting labor epidural at this time. 04/10/18 01:58 Pt resting comfortably with epidural. Reports a little more pressure at this time. 04/10/18 05:23 comfortable with epidural. increasing pressure 04/10/18 10:32 Met with Laxmi this AM, examined her, had a long talk re options with her and her partner. She has been pushing for approximately 4 hours at this point. Comfortable with epidural, Pitocin running. Baby Category II FHR tracing - has looked good overall. Exhausted but still has some energy. : 04/11/18 12:19 Pt is doing well today. She feels body aches and soreness from labor and pushing, but feels good pain control from her incision. She has ambulated, voided and showered today. She has min lochia. She is taking Ibuprofen and Tylenol and she know she has Oxy prn. They are working on breast feeding and baby is doing well overall. 04/12/18 10:52 Doing well this am. Vag bleeding wnl, tolerating regular diet, pain well controlled with oral pain meds, voiding, passing gas, incision healing well, tolerating activity. going fine - baby is under bili lights at the bedside. 04/13/18 10:39 Doing well overall. Having some upper abdominal soreness especially when ambulating. States it is difficult to stand up straight. Bleeding has been normal, tolerating reg diet, voiding and has has a bm without difficult, and pain is controlled with medications. Nipples are sore today. Baby does have a known tongue tie and is being referred to an ENT for evaluation per the system operator. Milk is not yet in. She is and pumping. Baby being supplemented with donor milk. Vaginal - Diagnosis Amniotic Fluid Color: Meconium Stained - Delivery Providers Surgeon: Alvin Allen Security System Installer: Rosita Valentine (Sadaf Forbes [facility]) Anesthesiologist: Brian Tovar - Delivery Indications for Current Section: Arrest of Descent Surgical Procedures: Unscheduled, Low Transverse Intra-op Complications: Nucal Cord (x 1) EBL: 900cc Data FORD: 04/02/18 Gestational Age: 41 week(s) and 4 day(s) Taylor Delivery Date: 04/10/18 Delivery Time: 11:25 Sex of : Female [place] Weight (gm): 4132 g Score (1 Min): 8 Score (5 Min): 9 Discharge Information - Discharge Information Condition: Good Instruction/Follow Up: Two Weeks, Four Weeks, Six Weeks
[2018-04-13 16:46] VITALS: BP 124/84
--- NOTE | 2018-04-16 09:01 | POSTANESTH ---
Post Anesthetic Evaluation Cardiovascular Status: Normal, Stable Respiratory Status: Normal, Stable Level of Consciousness/Mental Status: Can Participate in Eval Pain Control: Adequate, Prn Tx Ordered Nausea/Vomiting Control: Adequate, Prn Tx Ordered Complications Possibly Related to Anesthesia: None Noted
== END 2018-04-13 18:45 | disposition home or self-care (01) | DRG 788 ==
LOC: FLD 09:29 → FOB 04-10 13:58
PROVIDERS: ADMIT Advanced Practice Midwife; ATTEND Advanced Practice Midwife
DX: O32.4XX0 Maternal care for high head at term, not applicable or unspecified (principal); O63.0 Prolonged first stage (of labor); O69.81X0 Labor and delivery complicated by cord around neck, without compression, not applicable or unspecified; O77.0 Labor and delivery complicated by meconium in amniotic fluid; O34.13 Maternal care for benign tumor of corpus uteri, third trimester; O48.0 Post-term pregnancy; D25.2 Subserosal leiomyoma of uterus; Z3A.41 41 weeks gestation of pregnancy; Z37.0 Single live birth; Z23 Encounter for immunization
CPT/HCPCS: J0690; J1100; J1885; J2175; J2210; J2274; J2370; J2405; J2590; J3105